=== PATIENT | female | born 1980 | race Caucasian/White ===

== ENCOUNTER 2016-10-07 20:50 | Emergency (ER) | payer OTHER ==
[~2016-10-07] VITALS: Ht 165.1 cm; Wt 63.0 kg
[2016-10-07 21:31] VITALS: BP 133/95
== END 2016-10-08 00:53 | disposition left against medical advice (07) ==
LOC: ER 20:50
DX: Z53.21 Procedure and treatment not carried out due to patient leaving prior to being seen by health care provider (principal)
CPT/HCPCS: A4606; Z7610

== ENCOUNTER 2021-12-06 09:59 | Emergency (ER) | payer SELFPAY ==
[~2021-12-06] VITALS: Ht 165.1 cm; Wt 68.0 kg
--- NOTE | 2021-12-06 10:02 | NUR ---
URINE SPECIMEN COLLECTED AND SENT TO LAB.
[2021-12-06 10:03] VITALS: BP 126/78
--- NOTE | 2021-12-06 10:03 | NUR ---
TO ER BED 16. BIBS C/O DYSURIA X 2 DAYS, "EXPOSED TO SYPHILIS" ALSO C/O THROAT DISCOMFORT THAT STARTED LAST NIGHT.
--- NOTE | 2021-12-06 10:08 | NUR ---
AT BEDSIDE FOR EVAL.
[2021-12-06 11:30] LABS: BILIRUBIN,URINE NEGATIVE (NEGATIVE); COLOR,URINE YELLOW (YELLOW); LEUKOCYTE ESTERASE ,URINE SMALL (NEGATIVE); NITRITE, URINE POSITIVE (NEGATIVE); PROTEIN,URINE NEGATIVE (NEGATIVE); UGLUCOSE NEGATIVE (NEGATIVE); UROBILINOGEN,URINE 0.2 EU/dL (0.2)
[2021-12-06 11:32] LABS: BACTERIA,URINE Moderate /HPF (None Seen); SQUAMOUS EPITHELIAL CELL,UR Few /HPF (None Seen); WBC,URINE 21-50 /HPF (0-3)
[2021-12-06] MEDS ORDERED: DOXYCYCLINE HYCLATE (100 MG) 100 MG TABLET ONE (11:54)
[2021-12-06] MEDS ORDERED: CEFTRIAXONE 1 G VIAL ONE (11:54)
[2021-12-06] MEDS ORDERED: LIDOCAINE /MPF 1% VIAL 5 ML VIAL ONE (11:55)
[2021-12-06] MEDS ORDERED: CEPH500C2 PO (11:57)
[2021-12-06] MEDS ORDERED: PHEN-705 PO (11:57)
[2021-12-06] MEDS: CEFTRIAXONE 1 G VIAL IM ONE (11:58)
[2021-12-06] MEDS: DOXYCYCLINE HYCLATE (100 MG) 100 MG TABLET PO ONE (12:02)
--- NOTE | 2021-12-06 12:14 | NUR ---
Patient discharged to home in stable condition. Written and verbal after care instructions given. Patient verbalizes understanding of instruction.
== END 2021-12-06 12:14 | disposition home or self-care (01) ==
LOC: ER 10:02
DX: N39.0 Urinary tract infection, site not specified (principal); J02.9 Acute pharyngitis, unspecified; F17.200 Nicotine dependence, unspecified, uncomplicated
CPT/HCPCS: 81001; 84703; 87086; 87491; 87591; 96372; 99283; J0696; J3490; 87186-TC

== ENCOUNTER 2023-05-24 16:07 | Emergency (ER) | payer MEDICAID, OTHER ==
[~2023-05-24] VITALS: Ht 165.1 cm; Wt 68.0 kg
[~2023-05-24 16:07] MED LIST: CEPH500C2 PO; PHEN-705 PO
[2023-05-24] MEDS ORDERED: ACETAMINOPHEN ES 500 MG TABLET PO ONE (16:30)
[2023-05-24] MEDS ORDERED: ACETAMINOPHEN ES 500 MG TABLET ONE (16:39)
[2023-05-24 19:08] VITALS: BP 116/76; TEMP 98.1; O2SAT 98
== END 2023-05-24 18:42 ==
LOC: ER 16:14
DX: S09.8XXA Other specified injuries of head, initial encounter (principal); F17.200 Nicotine dependence, unspecified, uncomplicated; Z79.899 Other long term (current) drug therapy; W22.8XXA Striking against or struck by other objects, initial encounter; Y93.51 Activity, roller skating (inline) and skateboarding; Y92.89 Other specified places as the place of occurrence of the external cause; Y99.8 Other external cause status
CPT/HCPCS: 99284; 72125; 71045; 70450; L0172

== ENCOUNTER 2023-06-03 22:58 | Emergency (ER) | payer MEDICAID, OTHER ==
[~2023-06-03] VITALS: Ht 165.1 cm; Wt 77.1 kg
[2023-06-03 23:53] VITALS: BP 123/90; TEMP 98.2; O2SAT 98
[2023-06-04] MEDS ORDERED: IBUPROFEN 400 MG TABLET PO ONE
[2023-06-04] MEDS ORDERED: IBUPROFEN 400 MG TABLET ONE (00:01)
[2023-06-04 00:28] LABS: PREGNANCY TEST URINE QUAL NEGATIVE (NEGATIVE)
[2023-06-04 00:29] LABS: ADD URINE CULTURE NO; APPEARANCE,URINE CLEAR (CLEAR); BACTERIA,URINE Rare /HPF (None Seen); BILIRUBIN,URINE NEGATIVE (NEGATIVE); BLOOD, URINE 2+ Ery/uL (NEGATIVE); COLOR,URINE YELLOW (YELLOW); KETONES,URINE NEGATIVE (NEGATIVE); LEUKOCYTE ESTERASE ,URINE NEGATIVE (NEGATIVE); NITRITE, URINE NEGATIVE (NEGATIVE); PH,URINE 5.5 (5.0-8.0); PROTEIN,URINE NEGATIVE (NEGATIVE); SQUAMOUS EPITHELIAL CELL,UR Few /HPF (None Seen); UGLUCOSE NEGATIVE (NEGATIVE); UROBILINOGEN,URINE 0.2 EU/dL (0.2); WBC,URINE 0-2 /HPF (0-3)
== END 2023-06-04 00:39 | disposition home or self-care (01) ==
LOC: ER 22:59
DX: R82.998 Other abnormal findings in urine (principal)
CPT/HCPCS: 81001; 84703-TC

== ENCOUNTER 2023-08-08 12:37 | Emergency (ER) | payer MEDICAID ==
[~2023-08-08] VITALS: Ht 165.1 cm; Wt 68.0 kg
[2023-08-08 14:46] VITALS: BP 125/81; TEMP 98.8; O2SAT 98
== END 2023-08-08 15:13 | disposition home or self-care (01) ==
LOC: ER 12:37
DX: Z11.3 Encounter for screening for infections with a predominantly sexual mode of transmission (principal); F17.200 Nicotine dependence, unspecified, uncomplicated; Z79.899 Other long term (current) drug therapy; Z60.2 Problems related to living alone